=== PATIENT | female | born 1955 | race Caucasian/White ===

== ENCOUNTER 2017-07-03 22:14 | Emergency (ER) | payer OTHER ==
[~2017-07-03] VITALS: Ht 152.4 cm; Wt 101.7 kg
[~2017-07-03 22:14] MED LIST: ABILIFY MAINTE400 MG IM; AMANTADINE100 M1 PO; AMOX TR-K CLV1 EAC4 PO; AMOXICILLIN500 M1 PO; ARTANE2 MG PO; ARTANE5 MG PO; ASPIRIN EC325 MG PO; B COMPLETE1 EACH PO; BACTRIM,SEPT1 TABLET PO; BENADRYL25 MG PO; BENZTROPINE MESY1 MG PO; CELEXA40 MG PO; CLARINEX5 MG PO; CLONAZEPAM1 MG PO; COGENTIN0.5 MG PO; COGENTIN1 MG PO; CRESTOR10 MG PO; CYMBALTA30 MG PO; CYMBALTA60 MG PO; ELOCON 0.1% CRE15 GM TP; FLONASE16 G1 BOTH NARES; FLOVENT DISKUS1 DIS2 IH; FLUOXETINE HCL20 MG PO; KEFLEX500 MG PO; KLONOPIN0.5 M1 PO; KLONOPIN1 MG PO; LUNESTA2 MG PO; MOTRIN600 MG PO; PANTOPRAZOLE SO40 MG PO; PRAVASTATIN SOD40 MG PO; PREDNISONE10 M1 PO; PREDNISONE20 MG PO; PROAIR HFA8.5 GM IH; PROTONIX40 MG PO; PROVENTIL,2.5 MG/3 M IH; PROZAC40 MG PO; RISPERDAL2 MG PO; RISPERDAL4 MG PO; RISPERIDONE2 MG PO; SKELAXIN800 MG PO; VENLAFAXINE HC150 M1 PO; VENTOLIN HFA18 GM IH; VITAMIN D2000 UNIT PO; VITAMIN D22000 UNIT PO; WOMEN'S DAILY1 EAC2 PO; ZANTAC150 MG PO; ZOLPIDEM TARTRA10 MG PO; ZYPREXA10 MG PO; ZYPREXA15 MG PO
[2017-07-04 00:58] LABS: ADD MIUA? YES; BILIRUBIN NEGATIVE; BLOOD LARGE; COLOR YELLOW ((YELLOW)); GLUCOSE (STRIP) NEGATIVE; KETONES NEGATIVE; LEUKOCYTES LARGE; NITRITE NEGATIVE; PROTEIN (STRIP) 30; SPECIFIC GRAVITY 1.005 (1.000-1.030); UROBILINOGEN 0.2 MG/DL (0.2-1.0)
[2017-07-04 01:15] LABS: BACTERIA RARE /HPF; CASTS NONE SEEN /LPF; EPITHELIAL CELLS RARE /HPF; MUCUS NONE SEEN /LPF; UCUL ADDED? YES; WHITE BLOOD CELLS 30-40 /HPF (0-5)
[2017-07-04 01:16] LABS: CRYSTALS NONE SEEN
[2017-07-04] MEDS ORDERED: KEFLEX500 MG PO (01:37)
[2017-07-04 01:38] LABS: HEMATOCRIT 41.2 % (36.0-46.0); MCHC 33.7 G/DL (30.0-36.0); MCV 88.8 FL (83-99); MEAN PLAT.VOLUME 8.9 uM^3 (9.5-12.4); PLATELET COUNT 324 K/uL (156-360); RBC DIS.WIDTH-CV 13.4 % (11.8-14.6); RBC DIS.WIDTH-SD 43.6 % (39-53); RED BLOOD COUNT 4.64 M/uL (3.80-5.20); WHITE BLOOD COUNT 14.8 K/uL (4.1-10.2)
[2017-07-04 01:46] LABS: CHLORIDE 104 mEq/L (99-109); POTASSIUM 3.7 mEq/L (3.7-5.4); SODIUM 139 mEq/L (136-147)
[2017-07-04 01:47] LABS: GLUCOSE 126 mg/dL (70-99)
[2017-07-04 01:49] LABS: ANION GAP 12 MEQ/L (2-14)
[2017-07-04 01:51] LABS: GFR ESTIMATE (CALCULATED) > 59 mL/min/
[2017-07-04 01:52] LABS: UREA NITROGEN (BUN) 7 mg/dL (9-23)
[2017-07-04 02:09] VITALS: BP 132/78
== END 2017-07-04 02:10 | disposition home or self-care (01) ==
LOC: EME 22:14
PROVIDERS: Physician Assistant
DX: N30.01 Acute cystitis with hematuria (principal); E11.9 Type 2 diabetes mellitus without complications; J45.909 Unspecified asthma, uncomplicated; E78.5 Hyperlipidemia, unspecified; F20.9 Schizophrenia, unspecified; Z96.653 Presence of artificial knee joint, bilateral
CPT/HCPCS: 74176; 80048; 81003; 85027; 87077; 87086; 87186; 99281; 99284